=== PATIENT | female | born 1945 | race Asian ===

== ENCOUNTER 2018-01-21 10:56 | Emergency (ER) | payer OTHER ==
[~2018-01-21] VITALS: Ht 154.9 cm; Wt 43.5 kg
[~2018-01-21 10:56] MED LIST: HYD25 PO; IBUPROFEN PO; LOSARTAN POTASS25 MG PO; LOVASTATIN20 M PO; METFORMIN500 MG PO; NIFEDICAL PO
[2018-01-21 11:05] VITALS: BP 148/71; Ht 154.9 cm; Wt 43.5 kg
== END 2018-01-21 11:25 | disposition left against medical advice (07) ==
LOC: ED 10:56
DX: R41.82 Altered mental status, unspecified (principal); I10 Essential (primary) hypertension; E11.9 Type 2 diabetes mellitus without complications